=== PATIENT | male | born 1970 ===

== ENCOUNTER 2020-06-16 18:23 | Emergency (ER) | payer MEDICAID ==
[~2020-06-16] VITALS: Ht 170.2 cm; Wt 68.2 kg
[2020-06-16 19:05] VITALS: BP 116/82
[2020-06-16] MEDS ORDERED: CLINDAMYCIN HCL 150 MG CAPSULE PO ONE (20:15)
== END 2020-06-16 21:00 | disposition home or self-care (01) ==
LOC: EMS 18:23
DX: L03.012 Cellulitis of left finger (principal); M79.89 Other specified soft tissue disorders; Z48.02 Encounter for removal of sutures